=== PATIENT | female | born 1990 | race Caucasian/White ===

== ENCOUNTER 2016-10-31 11:30 | Emergency (ER) | payer OTHER ==
[~2016-10-31] VITALS: Ht 165.1 cm; Wt 75.0 kg
[~2016-10-31 11:30] MED LIST: HYDR-4003 PO; IBUP-1827 PO; ONDA4TAB9 PO
[2016-10-31 11:33] VITALS: BP 119/77; PULSE 77; RESP 18; O2SAT 97
[2016-10-31] MEDS ORDERED: 0.9% Sodium Chloride 1,000 ML IV ONE (12:59)
[2016-10-31] MEDS ORDERED: Ondansetron 2 mg/mL 2 mL Inj IVPUSH ONE (13:00)
--- NOTE | 2016-10-31 13:11 | ED.REPORT ---
HPI-Headache Date of Service Oct 31, 2016 ED Provider: Khoa Del Valle PA-C Roxanna is a 26-year-old female who presents with chief complaint of headache. She states the headache started insidiously approximately 3 weeks ago. She localizes the pain around her right ear, rates it 8/10, without radiation, states nothing at ameliorates or aggravates the pain, though sometimes it throbs. She also complains of nausea and occasional tinnitus. She has had several episodes in the last 2 weeks she says are "similar to panic attacks" in which she feels hot, shaky, sees spots in her fingers and toes tingle. She states she calms herself down and they pass. Denies vision changes, hearing changes, dizziness, syncope, chest pain, palpitations, shortness of breath, wheezing, cough. No history of cancer. Nursing Notes Stated Complaint: HEADACHE,NAUSEAS Chief Complaint: Headache Nursing Notes Reviewed: Yes Allergies: Coded Allergies: No Known Allergies (Verified , 10/01/08) Scheduled Metoclopramide HCl (Metoclopramide HCl Odt) 10 Mg Tab.rapdis 10 MG PO BID Scheduled PRN Hydrocodone-Acetaminophen 5-325 mg (Hydrocodone-Acetaminophen 5-325 mg) 1 Each Tablet 1 TABLET PO Q4H PRN PRN For Pain Ibuprofen (Ibuprofen) 600 Mg Tablet 600 MG PO QID PRN PRN For Pain Ondansetron ODT (Zofran ODT) 4 Mg Tablet 4 MG PO Q4H PRN PRN For Nausea General Time Seen by MD: 12:46 Chief Complaint Headache Sudden in Onset?: No Past Medical History Past Medical History Notes: PCP: Khoa Began (? spelling) at [facility] in [place] Past Medical History None reported Past Surgical History None reported Smoking History Current Every Day Smoker Ambulatory Status Independent Review of Systems General: Denies fever, chills, malaise. HEENT: Denies congestion, headache, sore throat. Respiratory: Denies dyspnea, cough, shortness of breath, wheezing. Cardiovascular: Denies chest pain, palpitations. Gastrointestinal: Denies vomiting, diarrhea, abdominal pain. Genitourinary: Denies frequency, urgency, dysuria, hematuria. Otherwise as noted in HPI. Physical Exam General: Well appearing, well developed, well nourished, no acute distress. Head: Atraumatic, normocephalic. Eyes: No scleral icterus or injection. No discharge. Vision grossly intact. ENT: Voice clear, hearing grossly intact. Respiratory: Regular rate and rhythm. Breath sounds present, clear to auscultation and equal bilaterally. Cardiovascular: Regular rate and rhythm, without murmur, gallop or rub. No pedal edema. Gastrointestinal: Abdomen flat and non-tender without guarding or rebound. Bowel sounds normoactive. Skin: Warm and dry. Neurological: Normal gait, heel/toe, heel walking, toe walking, Romberg. Negative pronator drift. Cranial nerves: Vision grossly intact, PERRL, EOMI. Facial motion symmetrical, sensation to light touch over forehead, maxilla and mandible present and equal B /L. Voice clear and fluent, no drooling/pooling of saliva, uvula rises midline. Psychological: Alert and oriented. Speech appropriate, linear and logical. Behavior appropriate. Initial Vital Signs Vital Signs (First) Date Time Temp Pulse Resp B/P Pulse Ox O2 Delivery O2 Flow Rate FiO2 10/31/16 11:33 36.4 77 18 119/77 97 Room Air Initial VS: Reviewed, Vital signs normal Interpretation & Diagnostics Lab Results Interpretation Test 10/31/16 14:00 10/31/16 14:07 Hold Purple Top Tube Received (Received) Hold Blue Top Tube Received (Received) Hold [place] Top Tube Received (Received) Hold Urine Received (Received) Re-Eval/Medical Decision Med Decision/Clinical Course I discussed this case with Dr. Carey Otherwise healthy 26-year-old female presents with a three-week history of right sided headache centered around her right ear. Denies neurological symptoms or sudden onset. Physical exam is benign, right TM is partially obstructed by cerumen but visualized portion appears normal. I believe this is unlikely to be a bleed or tumor. Patient responded well to headache cocktail in the emergency department, with a moderately upsetting reaction to dexamethasone including agitation, nausea, feels hot this passed in about 5 minutes. Patient and her are hoping for definitive diagnosis and inquired about CT. I I offered CT, explained the risks and benefits and that Dr. Carey and I felt that this was unlikely to be a bleed or tumor. Patient and her agreed this was not time to perform a CT or MRI and that they would follow up with her primary care physician. Patient feels improved but sleepy and wishes to be discharged to home. Advised ibuprofen and acetaminophen for pain along with metoclopramide, rest, primary care follow-up, gave return precautions Re-Evaluation/Progress : Re-Evaluation/Progress Note: Patient states that her headache is reduced from an 8/10 to a 6/10 after treatment with 1 L normal saline, ketorolac, acetaminophen, ondansetron. Nausea is resolved. Discharge & Departure Impression: Primary Impression: Headache Headache type: unspecified Headache chronicity pattern: acute headache Intractability: not intractable Qualified Code: R51 - Headache Disposition: Home Discharge Condition Condition: Stable Patient Instructions: Acute Headache (ED) Additional Instructions: Evaluation for headache in the emergency department today. History and physical are reassuring this is unlikely to be bleeding in your brain or a tumor. He responded well to medications in the emergency department, and the headache is significant improved. I believe he is stable and safe to be discharged home. Rest as much as possible last couple of days. The pain is best treated with 400 mg of ibuprofen (Advil, Motrin) every 6 hours, or 1000 mg of acetaminophen (Tylenol) every 6 hours. These drugs can be taken at the same time for more severe pain. I will also give you a prescription for Reglan which should be helpful for nausea and headache. Please contact your primary care provider to arrange follow-up next week. Return to emergency Department for any new or worsening symptoms including changes to your headache, vision changes, sensory changes or seizures. Referrals: OTHER,PHYSICIAN (PCP) Khao Martinez EDSupervising Provider for APC: Yonas Carey MD Attending Statement I was personally available for consultation in the Emergency Department. I have reviewed the chart and agree with the documentation as recorded by the Midlevel Provider, including the assessment, treatment plan, and the disposition. Khoa Del Valle PA-C Oct 31, 2016 13:11 Yonas Carey MD Oct 31, 2016 18:54
[2016-10-31] MEDS ORDERED: Dexamethasone 10 mg/mL Inj IVPUSH ONE (16:15)
[2016-10-31] MEDS ORDERED: MetoCLOpramide 5 mg/mL 2 mL Inj IVPUSH ONE (16:15)
[2016-10-31] MEDS ORDERED: Haloperidol 5 mg/mL Inj IVPUSH ONE (16:15)
[2016-10-31] MEDS ORDERED: [UNRECOGNIZED DRUG - CODE] PO (17:13)
[2016-10-31 17:22] VITALS: BP 106/59; PULSE 65; RESP 16; O2SAT 98
== END 2016-10-31 17:22 | disposition home or self-care (01) ==
LOC: SED 11:30
DX: R51 Headache (principal); F17.200 Nicotine dependence, unspecified, uncomplicated
CPT/HCPCS: 96361; 96374; 96375; 99284; J1100; J1200; J1630; J2405; J2765; J7030